=== PATIENT | female | born 1985 | race Caucasian/White ===

== ENCOUNTER 2018-04-22 15:09 | Emergency (ER) | payer OTHER ==
[~2018-04-22] VITALS: Ht 165.1 cm; Wt 81.7 kg
[~2018-04-22 15:09] MED LIST: BCP; BIRTH CONTROL; CEPH500 PO; CETI10 PO; DIPH50 PO; HYDACE5 PO; METO5A PO; MIRENA; MULVITMINE; MULVITMINE PO; ONDA4 PO; ONDA4ODT MM; ONDA8ODT MM; PENVK500; PRED10 PO; PRED5 PO; PROCODE120; PROM25; PROM25 PO; PROM25S PR; PROM6.25SY PO; RXOXYACE PO; RXPROM25 PO; RXPROM25S PR; SERT50; SULTRIDS PO; Valium5 MG PO; [UNRECOGNIZED DRUG - REMARK]
[2018-04-22] MEDS ORDERED: Percocet 5-3251 EACH PO (15:22)
[2018-04-22 16:12] LABS: BASOPHILS ABSOLUTE AUTO 0.03 K/mm3 (0.00-0.23); BASOPHILS PERCENT AUTO 0 % (0-2); EOSINOPHILS ABSOLUTE AUTO 0.05 K/mm3 (0.00-0.68); EOSINOPHILS PERCENT AUTO 1 % (0-6); Hematocrit 41.3 % (33.0-51.0); Hemoglobin 13.6 g/dL (11.5-16.0); IMMATURE GRAN ABSOLUTE AUTO 0.05 K/mm3 (0.00-0.10); IMMATURE GRAN PERCENT AUTO 1 % (0-1); LYMPHOCYTES PERCENT AUTO 12 % (21-46); MONOCYTES ABSOLUTE AUTO 0.48 K/mm3 (0.16-1.47); MONOCYTES PERCENT AUTO 4 % (4-13); Mean Corpuscular HGB 32.3 pg (26.0-34.0); Mean Corpuscular HGB Conc 32.9 g/dL (31.5-36.5); Mean Corpuscular Volume 98 fL (80-100); Mean Platelet Volume 9.5 fL (9.1-12.4); NEUTROPHILS ABSOLUTE AUTO 9.01 K/mm3 (1.96-9.15); NEUTROPHILS PERCENT AUTO 82 % (41-73); Platelet Count 288 K/mm3 (150-400); RDW Coefficient Variation 12.2 % (11.7-14.2); RDW Standard Deviation 44.4 fL (35.1-46.3); Red Blood Cell Count 4.21 M/mm3 (3.80-5.20); White Blood Cell Count 10.92 K/mm3 (4.00-11.30)
[2018-04-22 16:27] LABS: Alanine Aminotransfer (ALT/SGP 27 U/L (12-78); Albumin, Blood 4.3 g/dL (3.4-5.0); Albumin/Globulin Ratio 1.3 (0.8-1.8); Alk Phos 52 U/L (50-136); Anion Gap 7 mmol/L (6-16); Aspartate Aminotrans (AST/SGOT 16 U/L (12-37); Beta HCG, Quantitative, Serum 684 mIU/mL (0-3); Bilirubin, Total 0.4 mg/dL (0.1-1.0); Blood Urea Nitrogen 13 mg/dL (8-24); Bun/Creatinine Ratio 15.4 (12.0-20.0); CO2, Blood 25 mmol/L (21-32); Calcium, Blood 8.5 mg/dL (8.5-10.1); Chloride, Blood 108 mmol/L (98-108); Creatinine, Blood 0.84 mg/dL (0.40-1.00); Globulin, Blood 3.4 g/dL (2.2-4.0); Glomerular Filtration Rate >60 (60-); Glucose, Blood 89 mg/dL (70-99); Potassium, Blood 3.9 mmol/L (3.5-5.5); Sodium, Blood 140 mmol/L (136-145); Total Protein, Blood 7.7 g/dL (6.4-8.2)
[2018-04-22 19:13] LABS: Source, Urine Clean Catch
[2018-04-22 19:16] LABS: Bilirubin, Urine Neg (Neg); Blood, Urine Neg (Neg); Glucose Qualitative, Urine Neg (Neg); Ketones, Urine 2+ (Neg); Leukocyte Esterase, Urine 1+ (Neg); Nitrite, Urine Neg (Neg); Protein, Urine Neg (Neg); Urobilinogen, Urine NORM (Normal)
[2018-04-22 19:51] LABS: Appearance, Urine Clear (Clear); Color, Urine Yellow (P-Yellow)
[2018-04-22 19:52] LABS: Amorphous Light (0-Heavy); Bacteria Few /hpf; Red Blood Cells, Urine Not Seen /hpf (0-2); Squamous Epithelial Cells Rare /hpf (Few); White Blood Cells, Urine 0-2 /hpf (0-5)
[2018-04-22] MEDS ORDERED: ONDA4ODT MM (20:05)
== END 2018-04-22 20:13 | disposition home or self-care (01) ==
LOC: ER 15:09
PROVIDERS: Physician Assistant
DX: R11.2 Nausea with vomiting, unspecified (principal)
CPT/HCPCS: 36415; 76801; 76817; 80053; 81001; 84702; 85025; 87086; 96361; 96374; 99284-25; J2405; J7120

== ENCOUNTER 2018-10-07 23:41 | Emergency (ER) | payer OTHER ==
[~2018-10-07] VITALS: Ht 165.1 cm; Wt 93.0 kg
[~2018-10-07 23:41] MED LIST changes: +Percocet 5-3251 EACH PO
[2018-10-08] MEDS ORDERED: Amoxicillin500 MG PO (01:47)
== END 2018-10-08 03:13 | disposition home or self-care (01) ==
LOC: ER 23:41
DX: J32.9 Chronic sinusitis, unspecified (principal)
CPT/HCPCS: 99283

== ENCOUNTER → 2019-02-20 | Outpatient (CLI) | payer OTHER ==
[~2019-02-20] MED LIST changes: +Amoxicillin500 MG PO; +IBUP800 PO
[2019-02-22 02:06] LABS: CHLAMYDIA TRACHOMATIS, NAA Negative (Negative); NEISSERIA GONORRHOEAE, NAA Negative (Negative)
== END | disposition home or self-care (01) ==
LOC: LAB SHORT 12:49 → LAB 12:49
PROVIDERS: Obstetrics & Gynecology
DX: Z34.83 Encounter for supervision of other normal pregnancy, third trimester (principal); Z3A.35 35 weeks gestation of pregnancy
CPT/HCPCS: 87081; 87491; 87591; 87653

== ENCOUNTER 2019-03-22 14:10 | Inpatient (IN) | payer OTHER ==
[~2019-03-22] VITALS: Ht 165.1 cm; Wt 110.5 kg
[~2019-03-22 14:10] MED LIST changes: -IBUP800 PO
[2019-03-22 15:06] LABS: BASOPHILS ABSOLUTE AUTO 0.02 K/mm3 (0.00-0.23); BASOPHILS PERCENT AUTO 0 % (0-2); EOSINOPHILS ABSOLUTE AUTO 0.07 K/mm3 (0.00-0.68); EOSINOPHILS PERCENT AUTO 1 % (0-6); Hematocrit 36.7 % (33.0-51.0); Hemoglobin 12.5 g/dL (11.5-16.0); IMMATURE GRAN ABSOLUTE AUTO 0.06 K/mm3 (0.00-0.10); IMMATURE GRAN PERCENT AUTO 1 % (0-1); LYMPHOCYTES ABSOLUTE AUTO 1.65 K/mm3 (0.84-5.20); LYMPHOCYTES PERCENT AUTO 19 % (21-46); MONOCYTES ABSOLUTE AUTO 0.86 K/mm3 (0.16-1.47); MONOCYTES PERCENT AUTO 10 % (4-13); Mean Corpuscular HGB 33.6 pg (26.0-34.0); Mean Corpuscular HGB Conc 34.1 g/dL (31.5-36.5); Mean Corpuscular Volume 99 fL (80-100); Mean Platelet Volume 10.5 fL (9.1-12.4); NEUTROPHILS ABSOLUTE AUTO 5.97 K/mm3 (1.96-9.15); NEUTROPHILS PERCENT AUTO 69 % (41-73); Platelet Count 186 K/mm3 (150-400); RDW Coefficient Variation 13.2 % (11.7-14.2); RDW Standard Deviation 47.5 fL (35.1-46.3); Red Blood Cell Count 3.72 M/mm3 (3.80-5.20); White Blood Cell Count 8.63 K/mm3 (4.00-11.30)
--- NOTE | 2019-03-23 04:15 | NUR ---
FIRST POST VOID. VOIDING WITHOUT DIFFICULTY
--- NOTE | 2019-03-23 05:33 | NUR ---
HELPED PATIENT TO BATHROOM TO VOID. PINK PAD 2/3 FULL WITHIN 1 HOUR. 1 SMALL CLOT PRESENT.
[2019-03-23 12:13] LABS: Hematocrit 34.1 % (33.0-51.0); Hemoglobin 11.4 g/dL (11.5-16.0); Mean Corpuscular HGB 32.8 pg (26.0-34.0); Mean Corpuscular HGB Conc 33.4 g/dL (31.5-36.5); Mean Corpuscular Volume 98 fL (80-100); Mean Platelet Volume 10.5 fL (9.1-12.4); Platelet Count 177 K/mm3 (150-400); RDW Coefficient Variation 13.3 % (11.7-14.2); RDW Standard Deviation 47.8 fL (35.1-46.3); Red Blood Cell Count 3.48 M/mm3 (3.80-5.20); White Blood Cell Count 17.53 K/mm3 (4.00-11.30)
[2019-03-24] MEDS ORDERED: IBUP800 PO (09:02)
--- NOTE | 2019-03-24 13:30 | NUR ---
ROUNDED ON PATIENT, MOTHER AND BABY SLEEPING
--- NOTE | 2019-03-24 15:13 | NUR ---
PATIENT DISCHARGED AT 1500. WALKED OUT TO VEHICLE BY RN WITH BABY IN [facility].
== END 2019-03-24 15:00 | disposition home or self-care (01) | DRG 807 ==
LOC: OBS 14:10 → BC 14:15 → OBS 14:19 → BC 14:19
PROVIDERS: ADMIT Obstetrics & Gynecology
PROC: 10E0XZZ Delivery of Products of Conception, External Approach (ICD-10-PCS; principal; 2019-03-23)
PROC: 10907ZC Drainage of Amniotic Fluid, Therapeutic from Products of Conception, Via Natural or Artificial Opening (ICD-10-PCS; 2019-03-23)
PROC: 3E033VJ Introduction of Other Hormone into Peripheral Vein, Percutaneous Approach (ICD-10-PCS; 2019-03-23)
DX: O80 Encounter for full-term uncomplicated delivery (principal); Z37.0 Single live birth; Z3A.39 39 weeks gestation of pregnancy
CPT/HCPCS: 36415; 85025; 85027; A9270; J1885; J2001; J2210; J2590; J3010; J7120

== ENCOUNTER → 2021-05-19 | Outpatient (CLI) | payer OTHER ==
[~2021-05-19] MED LIST changes: +IBUP800 PO
[2021-05-20 13:10] LABS: HPV 16 Negative (Negative); HPV 18 Negative (Negative); HPV OTHER HR TYPES Negative (Negative)
== END ==
LOC: LAB SHORT 08:22 → LAB 08:22
PROVIDERS: Obstetrics & Gynecology
DX: Z12.4 Encounter for screening for malignant neoplasm of cervix (principal)
CPT/HCPCS: 87624; G0123

== ENCOUNTER → 2022-03-23 | Outpatient (CLI) | payer OTHER ==
[~2022-03-23] MED LIST changes: +AMOCLA875 PO; +Norco 5-325 Ta1 EACH PO
== END | disposition home or self-care (01) ==
LOC: LAB 14:14 → LAB SHORT 14:14
DX: N39.0 Urinary tract infection, site not specified (principal)
CPT/HCPCS: 87077; 87086; 87186

== ENCOUNTER → 2022-04-29 | Outpatient (CLI) | payer OTHER | END | disposition home or self-care (01) | LOC: LAB 13:51 → LAB SHORT 13:51 | DX: Z32.01 Encounter for pregnancy test, result positive (principal) | CPT/HCPCS: 84702 ==

== ENCOUNTER → 2022-05-04 | Outpatient (CLI) | payer OTHER ==
[2022-05-04 18:43] LABS: U Buprenorphine Screen DETECTED
[2022-05-04 18:44] LABS: U Amphetamine Screen Not Detected; U Barbituate Screen Not Detected; U Benzodiazapine Screen Not Detected; U Cannabinoids Screen Not Detected; U Cocaine Screen Not Detected; U Methadone Screen Not Detected; U Methamphetamine Screen Not Detected; U Opiates Screen Not Detected; U Oxycodone Screen Not Detected; U Phencyclidine Screen Not Detected; U Propoxyphene Screen Not Detected
[2022-05-06 03:08] LABS: CHLAMYDIA TRACHOMATIS, NAA Negative (Negative)
== END ==
LOC: LAB SHORT 17:51 → LAB 17:51
PROVIDERS: Obstetrics & Gynecology
DX: Z34.81 Encounter for supervision of other normal pregnancy, first trimester (principal)
CPT/HCPCS: 87086; 87491; 87591; G0480

== ENCOUNTER 2022-12-01 11:35 | Inpatient (IN) | payer OTHER ==
[2022-12-01] VITALS (24 sets, daily range): BP systolic 100–142; BP diastolic 54–100
[~2022-12-01] VITALS: Ht 162.6 cm; Wt 102.7 kg
[2022-12-01 12:00] LABS: BASOPHILS ABSOLUTE AUTO 0.03 K/mm3 (0.00-0.23); BASOPHILS PERCENT AUTO 0 % (0-2); EOSINOPHILS ABSOLUTE AUTO 0.51 K/mm3 (0.00-0.68); EOSINOPHILS PERCENT AUTO 4 % (0-6); Hematocrit 30.3 % (33.0-51.0); Hemoglobin 10.1 g/dL (11.5-16.0); IMMATURE GRAN ABSOLUTE AUTO 0.07 K/mm3 (0.00-0.10); IMMATURE GRAN PERCENT AUTO 1 % (0-1); LYMPHOCYTES ABSOLUTE AUTO 1.92 K/mm3 (0.84-5.20); LYMPHOCYTES PERCENT AUTO 15 % (21-46); MONOCYTES PERCENT AUTO 9 % (4-13); Mean Corpuscular HGB 32.4 pg (26.0-34.0); Mean Corpuscular HGB Conc 33.3 g/dL (31.5-36.5); Mean Corpuscular Volume 97 fL (80-100); NEUTROPHILS ABSOLUTE AUTO 9.55 K/mm3 (1.96-9.15); NEUTROPHILS PERCENT AUTO 72 % (41-73); Platelet Count 218 K/mm3 (150-400); RDW Coefficient Variation 14.6 % (11.7-14.2); RDW Standard Deviation 52.2 fL (35.1-46.3); Red Blood Cell Count 3.12 M/mm3 (3.80-5.20); White Blood Cell Count 13.28 K/mm3 (4.00-11.30)
[2022-12-01 12:21] LABS: PCO2 Cord - Arterial 55.9 mmHg (40-50); PO2 Cord - Arterial 20.6 mmHg (16-20); pH Cord - Arterial 7.28 (7.28-7.35)
[2022-12-01 12:24] LABS: PCO2 Cord - Venous 45.3 mmHg (40-50); PO2 Cord - Venous 35.7 mmHg (28-32); pH Umbilical Cord - Venous 7.32 (7.26-7.35)
--- NOTE | 2022-12-01 13:47 | NUR ---
FENTANYL 2 VIALS OF FENTANYL PULLED IN OR PYXIS FOR DR DICKSON IN EMERGENCY CSECTION. SEE ANESTHESIA RECORD.
--- NOTE | 2022-12-01 14:47 | NUR ---
12/01/22 1447 Adry Frank PRIMARY SECTION FOR ABRUPTION. 1203 OF BREECH GIRL. CORD SEGMENT COLLECTED AND SENT WITH RT. BILATERAL SALPINGECTOMY FOR STERILIZATION; FALLOPION TUBES SENT TO PATHOLOGY.
[2022-12-01 14:54] LABS: BASOPHILS ABSOLUTE AUTO 0.03 K/mm3 (0.00-0.23); BASOPHILS PERCENT AUTO 0 % (0-2); EOSINOPHILS PERCENT AUTO 1 % (0-6); Hematocrit 29.4 % (33.0-51.0); Hemoglobin 9.7 g/dL (11.5-16.0); IMMATURE GRAN PERCENT AUTO 1 % (0-1); LYMPHOCYTES ABSOLUTE AUTO 1.45 K/mm3 (0.84-5.20); LYMPHOCYTES PERCENT AUTO 9 % (21-46); MONOCYTES ABSOLUTE AUTO 0.77 K/mm3 (0.16-1.47); MONOCYTES PERCENT AUTO 5 % (4-13); Mean Corpuscular Volume 97 fL (80-100); Mean Platelet Volume 9.8 fL (9.1-12.4); NEUTROPHILS ABSOLUTE AUTO 13.58 K/mm3 (1.96-9.15); NEUTROPHILS PERCENT AUTO 85 % (41-73); Platelet Count 224 K/mm3 (150-400); RDW Coefficient Variation 14.6 % (11.7-14.2); RDW Standard Deviation 51.8 fL (35.1-46.3); Red Blood Cell Count 3.03 M/mm3 (3.80-5.20); White Blood Cell Count 16.03 K/mm3 (4.00-11.30)
[2022-12-01] MEDS ORDERED: OMEPRAZOLE20 M1 (15:56)
[2022-12-01] MEDS ORDERED: ONDA4 PO (15:56)
[2022-12-02] VITALS (8 sets, daily range): BP systolic 101–122; BP diastolic 62–73
[2022-12-02 06:05] LABS: BASOPHILS ABSOLUTE AUTO 0.04 K/mm3 (0.00-0.23); BASOPHILS PERCENT AUTO 0 % (0-2); EOSINOPHILS ABSOLUTE AUTO 0.21 K/mm3 (0.00-0.68); EOSINOPHILS PERCENT AUTO 1 % (0-6); Hematocrit 24.7 % (33.0-51.0); Hemoglobin 8.2 g/dL (11.5-16.0); IMMATURE GRAN ABSOLUTE AUTO 0.11 K/mm3 (0.00-0.10); IMMATURE GRAN PERCENT AUTO 1 % (0-1); LYMPHOCYTES ABSOLUTE AUTO 2.98 K/mm3 (0.84-5.20); LYMPHOCYTES PERCENT AUTO 20 % (21-46); MONOCYTES PERCENT AUTO 9 % (4-13); Mean Corpuscular HGB 32.2 pg (26.0-34.0); Mean Corpuscular HGB Conc 33.2 g/dL (31.5-36.5); Mean Corpuscular Volume 97 fL (80-100); Mean Platelet Volume 9.7 fL (9.1-12.4); NEUTROPHILS ABSOLUTE AUTO 10.63 K/mm3 (1.96-9.15); NEUTROPHILS PERCENT AUTO 70 % (41-73); Platelet Count 223 K/mm3 (150-400); RDW Coefficient Variation 14.7 % (11.7-14.2); RDW Standard Deviation 52.1 fL (35.1-46.3); Red Blood Cell Count 2.55 M/mm3 (3.80-5.20); White Blood Cell Count 15.27 K/mm3 (4.00-11.30)
--- NOTE | 2022-12-02 07:14 | NUR ---
YOSELYN CARE DONE THROUGHOUT THE NIGHT WITH NO LOCHIA PRESENT ON PADS.
--- NOTE | 2022-12-02 12:31 | NUR ---
PAD CHANGED AT MORNING ASSESSMENT. NO BLOOD ON PAD NOTED BY THIS RN TO WEIGH FOR QBL.
--- NOTE | 2022-12-02 12:38 | NUR ---
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
[2022-12-03 04:49] VITALS: BP 128/71
[2022-12-03 05:58] LABS: BASOPHILS ABSOLUTE AUTO 0.04 K/mm3 (0.00-0.23); BASOPHILS PERCENT AUTO 0 % (0-2); EOSINOPHILS ABSOLUTE AUTO 0.26 K/mm3 (0.00-0.68); EOSINOPHILS PERCENT AUTO 2 % (0-6); Hematocrit 25.9 % (33.0-51.0); Hemoglobin 8.6 g/dL (11.5-16.0); IMMATURE GRAN ABSOLUTE AUTO 0.09 K/mm3 (0.00-0.10); IMMATURE GRAN PERCENT AUTO 1 % (0-1); LYMPHOCYTES ABSOLUTE AUTO 3.52 K/mm3 (0.84-5.20); LYMPHOCYTES PERCENT AUTO 28 % (21-46); MONOCYTES PERCENT AUTO 8 % (4-13); Mean Corpuscular HGB 32.3 pg (26.0-34.0); Mean Corpuscular HGB Conc 33.2 g/dL (31.5-36.5); Mean Corpuscular Volume 97 fL (80-100); Mean Platelet Volume 9.7 fL (9.1-12.4); NEUTROPHILS ABSOLUTE AUTO 7.74 K/mm3 (1.96-9.15); NEUTROPHILS PERCENT AUTO 61 % (41-73); Platelet Count 239 K/mm3 (150-400); RDW Coefficient Variation 15.2 % (11.7-14.2); RDW Standard Deviation 53.1 fL (35.1-46.3); Red Blood Cell Count 2.66 M/mm3 (3.80-5.20); White Blood Cell Count 12.65 K/mm3 (4.00-11.30)
[2022-12-03 08:07] VITALS: BP 121/68
[2022-12-03 11:07] VITALS: BP 139/65
[2022-12-03] MEDS ORDERED: Percocet 5-3251 EACH PO (12:08)
[2022-12-03] MEDS ORDERED: IBU800 M1 PO (12:08)
--- NOTE | 2022-12-03 12:15 | NUR ---
CPS SPOKE WITH NEIDA KENNEDY, RCP, VIA PHONE. SHE STATED PLAN IS STILL TO HAVE SAFETY PLAN IN PLACE PRIOR TO NB DISCHARGE AND THAT SHE IS WORKING ON THINGS TODAY AND THIS WEEKEND IN ANTICIPATION OF EARLY NEXT WEEK DISCHARGE. NO ADDITIONAL RESTRICTIONS IN PLACE, DIFFERENT FROM PREVIOUS ASSESSMENT LETTER, AT THIS TIME.
[2022-12-03 19:50] VITALS: BP 117/70
[2022-12-04 01:38] VITALS: BP 114/69
[2022-12-04 04:58] VITALS: BP 113/61
[2022-12-04 07:50] VITALS: BP 137/68
[2022-12-04 11:12] VITALS: BP 121/64
--- NOTE | 2022-12-04 16:38 | NUR ---
PT'S EPDS 13. PT DECLINING TO HAVE MANAGER SPECIAL EVENTS CONSULT AT THIS TIME. REPORTS FEELING SAFE BUT STATES THAT "THIS WEEK HAS BEEN ALOT." SHE REPORTS THAT SHE ALREADY HAS ENOUGH RESOURCES AND "DOESN'T NEED MORE THINGS GOING ON" SHE STATES SHE HAS TO TALK TO ADAPT ONCE A WEEK ALREADY. WILL UPDATE .
[2022-12-04 17:05] VITALS: BP 136/76
[2022-12-04] MEDS ORDERED: SERT25 PO (17:20)
== END 2022-12-04 17:52 | disposition home or self-care (01) | DRG 783 ==
LOC: OBS 11:35 → BC 11:40
PROVIDERS: ADMIT Obstetrics & Gynecology
PROC: 6A550ZT Pheresis of Cord Blood Stem Cells, Single (ICD-10-PCS; 2022-12-01)
PROC: 4A033R1 Measurement of Arterial Saturation, Peripheral, Percutaneous Approach (ICD-10-PCS; 2022-12-01)
PROC: 10D00Z1 Extraction of Products of Conception, Low, Open Approach (ICD-10-PCS; principal; 2022-12-01 15:30)
PROC: 0UT70ZZ Resection of Bilateral Fallopian Tubes, Open Approach (ICD-10-PCS; 2022-12-01 15:30)
DX: O32.1XX0 Maternal care for breech presentation, not applicable or unspecified (principal); O45.93 Premature separation of placenta, unspecified, third trimester; Z37.0 Single live birth; Z3A.38 38 weeks gestation of pregnancy; Z67.40 Type O blood, Rh positive; O99.334 Smoking (tobacco) complicating childbirth; F17.210 Nicotine dependence, cigarettes, uncomplicated
CPT/HCPCS: 36415; 82803; 85025; 86850; 86900; 86901; 86923; 88302; A9270; J0690; J1885; J2210; J2250; J2405; J2590; J2704; J2710; J2765; J3010; J7120